=== PATIENT | male | born 1985 | race Caucasian/White ===

== ENCOUNTER 2021-03-28 21:06 | Emergency (ER) | payer SELFPAY ==
[2021-03-28 21:30] VITALS: TEMP 97.9; BMI 31.0
[2021-03-28 22:06] VITALS: BP 135/70; PULSE 86
== END 2021-03-28 22:05 | disposition home or self-care (01) ==
LOC: JERFT 21:06
PROC: 0JQ10ZZ Repair Face Subcutaneous Tissue and Fascia, Open Approach (ICD-10-PCS; principal; 2021-03-28)
DX: S01.111A Laceration without foreign body of right eyelid and periocular area, initial encounter (principal); Y04.0XXA Assault by unarmed brawl or fight, initial encounter; Y92.9 Unspecified place or not applicable
CPT/HCPCS: 99283-25

== ENCOUNTER 2024-03-04 16:50 | Emergency (ER) | payer SELFPAY ==
[2024-03-04 16:59] VITALS: BP 115/90; PULSE 86; RESP 18; TEMP 97.9; BMI 28.7
[2024-03-04 18:53] LABS: HIV INTERPRETATION NEGATIVE (NEGATIVE)
== END 2024-03-04 18:36 | disposition home or self-care (01) ==
LOC: JERFT 16:50
DX: J40 Bronchitis, not specified as acute or chronic (principal)
CPT/HCPCS: 36415; 71046-TC-FY; 86803; 87389; 99284-25